=== PATIENT | male | born 1975 | race Caucasian/White ===

== ENCOUNTER → 2019-07-07 | Day surgery (SDC) | payer OTHER ==
[~2019-07-07] MED LIST: CELEXA20 MG PO; CHLORTHALIDONE25 MG PO; DEPO-TESTO100 MG/1 M IM; DILTIAZEM ER120 MG PO; FENOFIBRATE160 MG PO; FLOMAX0.4 MG PO; LEVO-T50 MCG PO; MELOXICAM15 MG PO; NORCO 5-325 TA1 EAC1 PO; PROVIGIL 200 M200 MG PO; TRAZODONE HCL100 MG PO; ZESTRIL40 MG PO; ZYLOPRIM300 MG PO
--- NOTE | 2019-07-09 06:00 | OP ---
[facility] [address] [place] [address] OPERATIVE REPORT Name: NURY LEE Room: [facility]#: [id number] Admission: 07/07/19 Attend Phys: Shady Sevilla Discharge: Date of : 79 Report #: [id number] THIS REPORT FOR: //name// CC: Jan Sevilla DATE OF SERVICE: 07/07/2019 PREOPERATIVE DIAGNOSIS: Internal and external hemorrhoids. POSTOPERATIVE DIAGNOSES: 1. Internal and external hemorrhoids. 2. Anal fissure. 3. Right back mass. OPERATION: 1. Excision of internal and external hemorrhoids, single column. 2. Excision of 0.5 cm right back mass, benign. SURGEON: Shady Sevilla MD ANESTHESIA: General. ESTIMATED BLOOD LOSS: Minimal. SPECIMENS: 1. Right back mass. 2. Internal and external hemorrhoids. DESCRIPTION OF PROCEDURE: After informed consent was obtained, the patient was brought to the operating room and placed supine. SCDs were placed and working, preoperative antibiotics were administered, general anesthesia was induced. The right back and the perianal area were prepped and draped in the usual sterile fashion. I grasped the right back lesion with a forceps. It was ligated at its base. This was pedunculated. This was then sent off as a specimen. The incision was then closed with a single 4-0 Monocryl suture in interrupted fashion. Attention was then directed to the anus. Digital rectal exam was performed. This demonstrated internal and external hemorrhoids. Forbes speculum was inserted. This also demonstrated internal and external hemorrhoids. The internal hemorrhoids were moderate in size and they were not bleeding. He had a single column on the right side, which corresponded with his pain. The column of hemorrhoids was then grasped. They were ligated at their base using the LigaSure device. There was excellent hemostasis. [place] [address] OPERATIVE REPORT Name: NURY LEE Room: [facility]#: [id number] Admission: 07/07/19 Attend Phys: Shady Sevilla Discharge: Date of : 79 Report #: [id number] fissure in the midline. The area was then instilled with 20 mL of Marcaine solution. The anus was then packed with Gelfoam. Sterile dressings were applied. COMPLICATIONS: None. DISPOSITION: The patient was taken to recovery in satisfactory condition. <ELECTRONICALLY SIGNED> By: Shady Sevilla MD 07/09/19 0600 0822 [id number] Sevilla MD /nt
--- NOTE | 2019-07-09 15:07 | PATH ---
[facility] [address] [place] [address] PATHOLOGY RPT PROCEDURE Name: NURY LEE [id number]: 07/07/19 Date of : 79 Discharge: Report #: [id number] Path Case #: [id number] [facility] Accession Number: [id number] . 01 Material submitted: . PART A: back - BACK MASS PART B: hemorrhoids - HEMORRHOID . 01 Clinical history: . Pre-op diagnosis: Back mass, hemorrhoids Post-op diagnosis: Back mass, hemorrhoid . 02 Diagnosis: A. Back mass: - Benign fibroepithelial/squamous papilloma. . B. Hemorrhoid: - Benign skin with prominent hemorrhoids. . (ANURAG:mine; 07/09/2019) MBKun 07/09/2019 1448 Local . 02 Electronically signed: . Mehdi Hernandez MD, Pathologist NPI- [id number] . 01 Gross description: . A. The specimen is received in formalin, labeled "Nury Lee, back mass". Received is a segment of pale angeles soft tissue measuring 1.2 x 0.6 x 0.5 cm in greatest dimensions. Sectioning reveals pale angeles, homogenous cut surfaces. The specimen is bisected and entirely submitted in cassette A1. . B. The specimen is received in formalin, labeled "Nury Lee, hemorrhoid". Received is a segment epithelial covered tissue measuring 3.0 x 1.4 x 1.0 cm in greatest dimensions. Sectioning reveals highly vascularized cut surfaces. No distinct nodules or lesions are noted grossly. The specimen is submitted representatively in cassette B1. (CAA; 07/08/2019) QA/[facility] 07/08/2019 0853 Local . 02 Pathologist provided ICD-10: L91.8, K64.9 . 02 CPT . 776659, [id number] Specimen Comment: A courtesy copy of this report has been sent to [phone] [id number] [address] PATHOLOGY RPT PROCEDURE Name: NURY LEE Room: [facility]#: [id number] Admission: 07/07/19 Date of : 79 Discharge: Report #: [id number] Path Case #: [id number] Specimen Comment: [id number] Specimen Comment: Report sent to and Performed at: [address], [place], [place] [id number] MD Addy Medellin MD Phone: [phone] Performed at: 02 [facility] [address], [place], [place] [id number] MD Mehdi Hernandez MD Phone: [phone]
== END | disposition home or self-care (01) ==
LOC: M.SUR 06:15
DX: D23.5 Other benign neoplasm of skin of trunk (principal); K64.8 Other hemorrhoids; K64.4 Residual hemorrhoidal skin tags; K60.2 Anal fissure, unspecified; L91.8 Other hypertrophic disorders of the skin; Z98.890 Other specified postprocedural states; Z79.899 Other long term (current) drug therapy; Z88.8 Allergy status to other drugs, medicaments and biological substances; Z98.84 Bariatric surgery status